=== PATIENT | female | born 1990 | race Two or more races ===

== ENCOUNTER 2020-03-03 17:39 | Emergency (ER) | payer SELFPAY ==
[~2020-03-03] VITALS: Ht 162.6 cm; Wt 68.0 kg
[2020-03-03 17:51] VITALS: BP 108/61
[2020-03-03] MEDS ORDERED: ACETAMINOPHEN 325MG TABLET PO STA (18:31)
[2020-03-03] MEDS ORDERED: GUAIFENESIN 200MG TABLET PO ONE (18:45)
== END 2020-03-03 19:47 | disposition home or self-care (01) ==
LOC: ER 17:39
DX: R05 Cough (principal); B34.9 Viral infection, unspecified; F41.9 Anxiety disorder, unspecified
CPT/HCPCS: 71045; 99283